=== PATIENT | female | born 1940 | race Caucasian/White ===

== ENCOUNTER 2019-11-08 11:13 | Inpatient (IN) | payer MEDICARE, BC ==
[~2019-11-08] VITALS: Ht 157.5 cm; Wt 74.3 kg
[2019-11-08 16:40] VITALS: BP 160/84
[2019-11-08] MEDS ORDERED: AMIODARONE200 MG PO (18:30)
[2019-11-08] MEDS ORDERED: TELMISARTAN40 MG PO (18:34)
[2019-11-08] MEDS ORDERED: ATORVASTATIN CA10 MG PO (18:35)
[2019-11-08] MEDS ORDERED: PRILOSEC 20MG20 MG PO (18:36)
[2019-11-08] MEDS ORDERED: TOPIRAMATE100 MG PO (18:37)
[2019-11-08] MEDS ORDERED: LEVOTHYROXINE0.15 MG PO (18:38)
[2019-11-08] MEDS ORDERED: PREMARIN1.25 M1 PO (18:39)
[2019-11-08] MEDS ORDERED: SILDENAFIL CITR20 M1 (18:40)
[2019-11-08] MEDS ORDERED: [UNRECOGNIZED DRUG - CODE] PO (18:41)
[2019-11-08] MEDS ORDERED: SINGULAIR 110 MG/TAB PO (18:42)
[2019-11-08] MEDS ORDERED: ZYLOPRIM 100MG100 MG (18:43)
[2019-11-08] MEDS ORDERED: FUROSEMIDE40 MG (18:45)
[2019-11-08] MEDS ORDERED: POTASSIUM CHLO20 ME4 PO (18:47)
[2019-11-08] MEDS ORDERED: CHILDREN'S ASPI81 M1 PO (18:53)
[2019-11-08] MEDS ORDERED: NATURAL IRON65 MG PO (18:54)
[2019-11-08] MEDS ORDERED: FLAX OIL1000 M1 (18:54)
[2019-11-08] MEDS ORDERED: PHARMASSURE VI100 MG (18:56)
[2019-11-08] MEDS ORDERED: ALLERGY RELIEF10 M2 PO (19:27)
[2019-11-08] MEDS ORDERED: XARELTO20 MG PO (19:28)
[2019-11-08] MEDS ORDERED: XARELTO15 MG PO (19:28)
[2019-11-08] MEDS ORDERED: ULTRAM50 M1 PO (19:30)
[2019-11-08] MEDS ORDERED: GOOD SENSE PAI650 MG PO (19:31)
[2019-11-08] MEDS ORDERED: INCRUSE EL62.5 MCG/A IH (19:32)
[2019-11-09 06:15] VITALS: BP 146/76
[2019-11-09 07:00] LABS: EOS # 0.1 (0.04-0.40); HEMATOCRIT 34.7 % (37.0-47.0); HEMOGLOBIN 11.3 g/dL (12.5-16.0); LYMPH# 1.4 (1.50-4.00); MEAN CELL VOLUME 103 fl (78-100); MEAN CORPUSCULAR HEMOGLOBIN 34 pg (27-31); MEAN CORPUSCULAR HGB CONC 33 g/dL (33-37); MEAN PLATELET VOLUME 10.9 fl (7.4-10.4); MONO # 0.6 (0.20-0.80); NEU # 3.4 (1.40-6.50); PLATELET COUNT 160 K/mm3 (130-400); RED BLOOD COUNT 3.36 M/mm3 (4.10-5.30); RED CELL DISTRIBUTION WIDTH 14.5 % (11.5-14.5); WHITE BLOOD COUNT 5.5 K/mm3 (4.8-10.8)
[2019-11-09 18:00] VITALS: BP 129/75
[2019-11-10 06:06] VITALS: BP 162/73
[2019-11-10 18:45] VITALS: BP 157/75
[2019-11-11 05:55] VITALS: BP 161/74
[2019-11-11 18:02] VITALS: BP 166/74
[2019-11-12 05:51] VITALS: BP 127/68
[2019-11-12 18:20] VITALS: BP 159/78
[2019-11-13 05:24] VITALS: BP 145/75
[2019-11-13 18:29] VITALS: BP 142/81
[2019-11-14 05:39] VITALS: BP 107/50
[2019-11-14 07:00] VITALS: BP 182/78
[2019-11-14 09:10] LABS: CALCIUM 9.4 mg/dL (8.3-10.5)
[2019-11-14 09:18] LABS: POTASSIUM 3.8 mmol/L (3.5-5.1)
[2019-11-14 17:45] VITALS: BP 129/65
[2019-11-15 05:51] VITALS: BP 136/74
[2019-11-15 08:21] LABS: URINE APPEARANCE CLEAR; URINE BILIRUBIN NEGATIVE (NEGATIVE); URINE BLOOD NEGATIVE (NEGATIVE); URINE COLOR YELLOW; URINE GLUCOSE NEGATIVE (NEGATIVE); URINE KETONE NEGATIVE (NEGATIVE); URINE LEUKOCYTE ESTERASE NEGATIVE (NEGATIVE); URINE NITRATE NEGATIVE (NEGATIVE); URINE PROTEIN(semi-quant) NEGATIVE (NEGATIVE); URINE UROBILINOGEN NORMAL (NORMAL); URINE WBC 0-1 /hpf (0-3)
[2019-11-15] MEDS ORDERED: AMOXICILLIN 50500 MG PO (13:18)
== END 2019-11-15 14:45 | disposition home or self-care (01) | DRG 948 ==
LOC: MED/SURG 11:13
PROVIDERS: Physician Assistant; ADMIT Nurse Practitioner Family
DX: R53.81 Other malaise (principal); I48.20 Chronic atrial fibrillation, unspecified; M25.562 Pain in left knee; F03.90 Unspecified dementia, unspecified severity, without behavioral disturbance, psychotic disturbance, mood disturbance, and anxiety; R00.1 Bradycardia, unspecified; I25.10 Atherosclerotic heart disease of native coronary artery without angina pectoris; J44.9 Chronic obstructive pulmonary disease, unspecified; M54.5 Low back pain; J32.9 Chronic sinusitis, unspecified; I27.20 Pulmonary hypertension, unspecified; Z79.01 Long term (current) use of anticoagulants; Z79.82 Long term (current) use of aspirin; Z79.891 Long term (current) use of opiate analgesic; Z79.1 Long term (current) use of non-steroidal anti-inflammatories (NSAID); Z88.2 Allergy status to sulfonamides; Z88.6 Allergy status to analgesic agent; Z91.81 History of falling
CPT/HCPCS: A9270-GY

== ENCOUNTER → 2021-05-25 | Outpatient (CLI) | payer MEDICARE, BC ==
[~2021-05-25] MED LIST: ALLERGY RELIEF10 M2 PO; AMIODARONE200 MG PO; AMOXICILLIN 50500 MG PO; ATORVASTATIN CA10 MG PO; CHILDREN'S ASPI81 M1 PO; FLAX OIL1000 M1; FUROSEMIDE40 MG; GOOD SENSE PAI650 MG PO; INCRUSE EL62.5 MCG/A IH; LEVOTHYROXINE0.15 MG PO; NATURAL IRON65 MG PO; PHARMASSURE VI100 MG; POTASSIUM CHLO20 ME4 PO; PREMARIN1.25 M1 PO; PRILOSEC 20MG20 MG PO; SILDENAFIL CITR20 M1; SINGULAIR 110 MG/TAB PO; TELMISARTAN40 MG PO; TOPIRAMATE100 MG PO; ULTRAM50 M1 PO; XARELTO15 MG PO; XARELTO20 MG PO; ZYLOPRIM 100MG100 MG; [UNRECOGNIZED DRUG - CODE] PO
[2021-05-25 12:35] LABS: BASO # 0.04 (0.02-0.10); EOS # 0.16 (0.04-0.40); EOS % 1.3 % (1.0-5.0); HEMATOCRIT 39.1 % (37.0-47.0); HEMOGLOBIN 12.8 g/dL (12.5-16.0); LYMPH# 1.54 (1.50-4.00); MEAN CELL VOLUME 104 fl (78-100); MEAN CORPUSCULAR HEMOGLOBIN 34 pg (27-31); MEAN CORPUSCULAR HGB CONC 33 g/dL (33-37); MEAN PLATELET VOLUME 10.5 fl (7.4-10.4); MONO # 0.76 (0.20-0.80); NEU # 9.33 (1.40-6.50); PLATELET COUNT 283 K/mm3 (130-400); RED BLOOD COUNT 3.75 M/mm3 (4.10-5.30); WHITE BLOOD COUNT 11.9 K/mm3 (4.8-10.8)
[2021-05-25 12:38] LABS: ALBUMIN 3.6 g/dL (3.4-4.8); POTASSIUM 4.6 mmol/L (3.5-5.1)
[2021-05-25 12:39] LABS: CALCIUM 9.7 mg/dL (8.3-10.5)
[2021-05-25 12:41] LABS: TOTAL PROTEIN 6.7 g/dL (6.2-8.1)
[2021-05-25 12:43] LABS: TOTAL BILIRUBIN 0.5 mg/dL (0.2-1.2)
[2021-05-25 12:48] LABS: MAGNESIUM 2.15 mg/dL (1.60-2.60)
[2021-05-27 01:22] LABS: THEOPHYLLINE AMS
== END ==
LOC: LAB 11:20
PROVIDERS: Internal Medicine
DX: I25.10 Atherosclerotic heart disease of native coronary artery without angina pectoris (principal); K90.9 Intestinal malabsorption, unspecified; I48.91 Unspecified atrial fibrillation; E09.9 Drug or chemical induced diabetes mellitus without complications; M10.09 Idiopathic gout, multiple sites; J45.909 Unspecified asthma, uncomplicated; E03.9 Hypothyroidism, unspecified; I10 Essential (primary) hypertension

== ENCOUNTER → 2024-06-19 | Outpatient (CLI) | payer MEDICARE, MEDICAID ==
[2024-06-19 16:07] LABS: BASO # 0.01 K/mm3 (0.02-0.10); EOS # 0.08 K/mm3 (0.04-0.40); EOS % 1.1 % (1.0-5.0); HEMATOCRIT 43.7 % (37.0-47.0); HEMOGLOBIN 14.2 g/dL (12.5-16.0); MEAN CELL VOLUME 104 fl (78-100); MEAN CORPUSCULAR HEMOGLOBIN 34 pg (27-31); MEAN CORPUSCULAR HGB CONC 33 g/dL (33-37); MEAN PLATELET VOLUME 10.7 fl (7.4-10.4); MONO # 0.63 K/mm3 (0.20-0.80); NEU # 4.97 K/mm3 (1.40-6.50); PLATELET COUNT 167 K/mm3 (130-400); RED BLOOD COUNT 4.19 M/mm3 (4.10-5.30); RED CELL DISTRIBUTION WIDTH 13.8 % (11.5-14.5); WHITE BLOOD COUNT 7.5 K/mm3 (4.8-10.8)
[2024-06-19 16:14] LABS: CALCIUM 9.7 mg/dL (8.3-10.5)
[2024-06-19 16:15] LABS: TOTAL PROTEIN 6.7 g/dL (6.2-8.1)
[2024-06-19 16:17] LABS: TOTAL BILIRUBIN 0.6 mg/dL (0.2-1.2)
[2024-06-19 16:22] LABS: MAGNESIUM 2.11 mg/dL (1.60-2.60)
== END ==
LOC: LAB 15:42
PROVIDERS: Internal Medicine
DX: E03.9 Hypothyroidism, unspecified (principal); I10 Essential (primary) hypertension; I25.10 Atherosclerotic heart disease of native coronary artery without angina pectoris; E11.9 Type 2 diabetes mellitus without complications

== ENCOUNTER → 2024-12-18 | Outpatient (CLI) | payer MEDICARE, MEDICAID ==
[2024-12-18 11:54] LABS: ALBUMIN 3.9 g/dL (3.4-4.8)
[2024-12-18 11:57] LABS: TOTAL PROTEIN 7.3 g/dL (6.2-8.1)
[2024-12-18 11:59] LABS: TOTAL BILIRUBIN 0.5 mg/dL (0.2-1.2)
[2024-12-18 12:02] LABS: BASO # 0.01 K/mm3 (0.02-0.10); EOS # 0.04 K/mm3 (0.04-0.40); EOS % 0.6 % (1.0-5.0); HEMATOCRIT 44.8 % (37.0-47.0); HEMOGLOBIN 14.5 g/dL (12.5-16.0); LYMPH# 1.36 K/mm3 (1.50-4.00); MEAN CELL VOLUME 105 fl (78-100); MEAN CORPUSCULAR HEMOGLOBIN 34 pg (27-31); MEAN CORPUSCULAR HGB CONC 32 g/dL (33-37); MEAN PLATELET VOLUME 11.1 fl (7.4-10.4); MONO # 0.51 K/mm3 (0.20-0.80); NEU # 5.13 K/mm3 (1.40-6.50); PLATELET COUNT 133 K/mm3 (130-400); RED BLOOD COUNT 4.26 M/mm3 (4.10-5.30); RED CELL DISTRIBUTION WIDTH 14.4 % (11.5-14.5); WHITE BLOOD COUNT 7.1 K/mm3 (4.8-10.8)
[2024-12-18 12:04] LABS: MAGNESIUM 1.92 mg/dL (1.60-2.60)
== END ==
LOC: LAB 11:14
PROVIDERS: Internal Medicine
DX: E03.9 Hypothyroidism, unspecified (principal); I10 Essential (primary) hypertension; K90.9 Intestinal malabsorption, unspecified; E11.9 Type 2 diabetes mellitus without complications; M10.9 Gout, unspecified